=== PATIENT | male | born 1990 | race American Indian/Alaskan Native ===

== ENCOUNTER 2018-12-25 11:09 | Emergency (ER) | payer SELFPAY ==
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
--- NOTE | 2018-12-25 12:43 | XRay Report ---
LEFT ANKLE, 3 VIEWS INDICATION: ankle pain. COMPARISON: None. IMPRESSION: Moderate to severe soft tissue swelling or edema is evident. Bone mineralization is nor mal. No acute osseous findings or joint pathology is identified. Signer Name: Matt Coleman Jr, MD Signed: 12/25/2018 12:38 PM Workstation Name: [id number]
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
[2018-12-25] MEDS ORDERED: TORADOL IM ONE (13:47)
--- NOTE | 2018-12-25 15:01 | XRay Report ---
FACIAL BONES, 4 VIEWS INDICATION: right side jaw pain, r/o fx. COMPARISON: None. IMPRESSION: No acute osseous or soft tissue abnormality. The sinuses are well-aerated. Orbital ca vities are symmetric and unremarkable. Signer Name: Matt Coleman Jr, MD Signed: 12/25/2018 2:57 PM Workstation Name: [id number]
[2018-12-25 15:48] VITALS: BP 131/81
== END 2018-12-25 15:45 | disposition home or self-care (01) ==
LOC: ED 11:09
DX: S96.912A Strain of unspecified muscle and tendon at ankle and foot level, left foot, initial encounter (principal); K02.9 Dental caries, unspecified; G47.419 Narcolepsy without cataplexy; F12.10 Cannabis abuse, uncomplicated; Z79.899 Other long term (current) drug therapy; Y04.0XXA Assault by unarmed brawl or fight, initial encounter; Y93.89 Activity, other specified; Y92.89 Other specified places as the place of occurrence of the external cause; Y99.8 Other external cause status
CPT/HCPCS: 70140; 73610; 96372; 99283; J1885

== ENCOUNTER 2019-02-05 12:13 | Emergency (ER) | payer SELFPAY ==
[2019-02-05] MEDS ORDERED: BOOSTRIX IM ONE ×2 (12:18→15:16)
--- NOTE | 2019-02-05 12:19 | Emergency Department Report ---
Blank Doc - Documentation Documentation: 28-year-old male that presents with right arm lac. This initial assessment/diagnostic orders/clinical plan/treatment(s) is/are subject to change based on patient's health status, clinical progression and re- assessment by fellow clinical providers in the ED. Further treatment and workup at subsequent clinical providers discretion. Patient/guardians urged not to elope from the ED as their condition may be serious if not clinically assessed and managed. Initial orders include: 1- Patient sent to [facility] for further evaluation and treatment 2- tetanus
[2019-02-05 12:20] VITALS: BP 148/94
--- NOTE | 2019-02-05 15:53 | Emergency Department Report ---
ED Laceration HPI - HPI Chief Complaint: Wound/Laceration Stated Complaint: RT ARM CUT/PAIN Time Seen by Provider: 02/05/19 12:18 Location: Upper Extremity (right lower arm) Severity: mild Tetanus Status: Not up to Date Laceration Symptoms: Yes Pain, No Foreign Body Sensation, No Numbness, No Weakness Other History: Patient states around 9 AM last yesterday he was working on a metal piece and accidentally struck his arm. Patient states that this occurred while he was at home in his backyard. Patient is states is not up-to-date on his tetanus. He states Minimal bleeding and bleeding stopped and resolved yesterday. Patient states did not look serious so he did not go in to be evaluated when it occurred. ED Review of Systems ROS: Stated complaint: RT ARM CUT/PAIN Other details as noted in HPI Comment: All other systems reviewed and negative ED Past Medical Hx - Past Medical History Previous Medical History?: No Additional medical history: Narcolepsy - Surgical History Past Surgical History?: No - Social History Smoking Status: Current Every Day Smoker Substance Use Type: None - Medications Home Medications: Home Medications Medication Instructions Recorded Confirmed Last Taken Type Butalb/Acetamin/Caff 50-325-40 1 each PO Q4H PRN #20 tablet 09/07/14 Unknown Rx [Fioricet] Ibuprofen [Motrin 600 MG tab] 600 mg PO Q8H PRN #20 tablet 12/25/18 Unknown Rx traMADol [Ultram 50 MG tab] 50 mg PO Q6HR PRN #10 tablet 12/25/18 Unknown Rx Ibuprofen [Motrin] 800 mg PO Q8HR #30 tablet 02/05/19 Unknown Rx cephALEXin [Keflex] 500 mg PO Q12HR #14 cap 02/05/19 Unknown Rx Laceration Physical Exam - Exam General: Vital signs noted. No distress. Alert and acting appropriately. Wound Length (cm): 1 Laceration Location: Other (right forearm lateral, no bleeding, healing) Laceration Exam: Yes Normal Distal CMS, No Foreign Body, No Exposed Tendon, Vessel, or Nerve, No Tendon Injury ED Course Vital Signs 02/05/19 12:16 Temperature 98.3 F Pulse Rate 82 Respiratory 17 Rate Blood Pressure 148/94 O2 Sat by Pulse 97 Oximetry ED Medical Decision Making - Medical Decision Making 28-year-old male presents with small avulsion of the right forearm. Wound looks like it is started to heal. Also patient won't sustained over 24 hours ago. Patient received tetanus boOster in the ED. Prophylaxis antibiotics given to patient. Patient presents with a trial of antibiotics . Discussed the patient to follow up with primary care physician in 3-5 days Vital signs are normal patient is in no acute distress. Wound was cleaned and dressed with triple ointment and sterile gauze dressing Critical care attestation.: If time is entered above; I have spent that time in minutes in the direct care of this critically ill patient, excluding procedure time. ED Disposition Clinical Impression: Avulsion of skin of forearm Disposition: DC-01 TO HOME OR SELFCARE Is pt being admited?: No Does the pt Need Aspirin: No Condition: Stable Instructions: Laceration (ED), Acute Wound Care (ED) Additional Instructions: Make sure to follow up with the primary care physician as discussed. Take all your medications as you've been prescribed. If you have any worsening symptoms or develop new symptoms please return to ED immediately. Prescriptions: cephALEXin [Keflex] 500 mg PO Q12HR #14 cap Ibuprofen [Motrin] 800 mg PO Q8HR #30 tablet Referrals: PRIMARY CARE, [Primary Care Provider] - 3-5 Days [facility] [Outside] - 3-5 Days Forms: Accompanied Note, Work/School Release Form(ED) Time of Disposition: 15:52
== END 2019-02-05 16:00 | disposition home or self-care (01) ==
LOC: ED 12:13
DX: S51.811A Laceration without foreign body of right forearm, initial encounter (principal); F17.200 Nicotine dependence, unspecified, uncomplicated; Z79.899 Other long term (current) drug therapy; W26.8XXA Contact with other sharp object(s), not elsewhere classified, initial encounter; Y93.89 Activity, other specified; Y92.89 Other specified places as the place of occurrence of the external cause; Y99.8 Other external cause status
CPT/HCPCS: 90471; 90715

== ENCOUNTER 2019-02-23 06:45 | Emergency (ER) | payer SELFPAY ==
--- NOTE | 2019-02-23 08:21 | Emergency Department Report ---
<MELINA MONTENEGRO - Last Filed: 02/24/19 08:43> ED Abdominal Pain HPI - General Chief Complaint: Abdominal Pain Stated Complaint: LT FLANK PAIN Time Seen by Provider: 02/23/19 07:46 Source: patient Mode of arrival: Ambulatory Limitations: No Limitations - History of Present Illness Initial Comments: 28-year-old -[place] male patient without significant past medical history presents with complaints of left upper quadrant pain for the past 2 days. He states the pain began after lifting a 120 pound item at work. He comp lains of a bulging mass in the area. He states the pain is a 3/10 in severity and improves with naproxen. He denies any nausea/vomiting/diarrhea, hematochezia, melena, constipation, or inability to pass gas. He states he has had 2 bowel movements since the incident. He denies any fever/chills/sweats. MD Complaint: abdominal pain -: Sudden Radiation: LUQ Migration to: no migration Severity scale (0 -10): 3 Quality: aching Consistency: constant Improves With: medication Associated Symptoms: denies other symptoms Treatments Prior to Arrival: NSAIDs - Related Data Previous Rx's Medication Instructions Recorded Last Taken Type Butalb/Acetamin/Caff 50-325-40 1 each PO Q4H PRN #20 tablet 09/07/14 Unknown Rx [Fioricet] Ibuprofen [Motrin 600 MG tab] 600 mg PO Q8H PRN #20 tablet 12/25/18 Unknown Rx traMADol [Ultram 50 MG tab] 50 mg PO Q6HR PRN #10 tablet 12/25/18 Unknown Rx Ibuprofen [Motrin] 800 mg PO Q8HR #30 tablet 02/05/19 Unknown Rx cephALEXin [Keflex] 500 mg PO Q12HR #14 cap 02/05/19 Unknown Rx Allergies Allergy/AdvReac Type Severity Reaction Status Date / Time No Known Allergies Allergy Unverified 02/05/14 12:15 ED Review of Systems Comment: All other systems reviewed and negative Constitutional: denies: chills, diaphoresis, fever Gastrointestinal: abdominal pain. denies: nausea, vomiting, diarrhea, constipation, melena, hematochezia ED Past Medical Hx - Past Medical History Previous Medical History?: No Additional medical history: Narcolepsy - Surgical History Past Surgical History?: No - Social History Smoking Status: Current Every Day Smoker Substance Use Type: None - Medications Home Medications: Home Medications Medication Instructions Recorded Confirmed Last Taken Type Butalb/Acetamin/Caff 50-325-40 1 each PO Q4H PRN #20 tablet 09/07/14 Unknown Rx [Fioricet] Ibuprofen [Motrin 600 MG tab] 600 mg PO Q8H PRN #20 tablet 12/25/18 Unknown Rx traMADol [Ultram 50 MG tab] 50 mg PO Q6HR PRN #10 tablet 12/25/18 Unknown Rx Ibuprofen [Motrin] 800 mg PO Q8HR #30 tablet 02/05/19 Unknown Rx cephALEXin [Keflex] 500 mg PO Q12HR #14 cap 02/05/19 Unknown Rx ED Physical Exam - General Limitations: No Limitations General appearance: alert, in no apparent distress - Head Head exam: Present: atraumatic, normocephalic - Eye Eye exam: Present: normal appearance. Absent: scleral icterus - Respiratory Respiratory exam: Present: normal lung sounds bilaterally. Absent: respiratory distress - Cardiovascular Cardiovascular Exam: Present: regular rate, normal rhythm, normal heart sounds - GI/Abdominal GI/Abdominal exam: Present: soft, tenderness (mild in LUQ), hernia (LUQ ventral hernia noted without overlying erythema. Hernia does appear to reduce). Absent: guarding, rebound, rigid, normal bowel sounds ED Medical Decision Making - Medical Decision Making 28-year-old -[place] male patient here complains left upper abdominal pain and bulging. Symptoms began immediately after lifting a very heavy object at work that weighed about 120 pounds. Patient denies any nausea, hematochezia, melena he states the pain is a 2/10 in severity. The pain has improved with naproxen. The hernia appears to reduce on exam hernia is soft without overlying erythema. Vitals are WNL. Given hernia non-strangulated, patient okay to DC home with follow-up with GI surgery. Informed patient to call surgeon first thing tomorrow morning to set up a follow-up appointment. Also discuss very strict return precautions in great detail with the patient who verbalizes understanding. ED Disposition Clinical Impression: Abdominal hernia without obstruction or gangrene Qualifiers: Hernia type: other abdominal hernia Qualified Code(s): K45.8 - Other specified abdominal hernia without obstruction or gangrene Disposition: DC-01 TO HOME OR SELFCARE Is pt being admited?: No Condition: Stable Instructions: Ventral Hernia (ED) Additional Instructions: He is return to the emergency department if you develop new or worsening symptoms including inability to pass gas or have a bowel movement, nausea/vomiting, fever, increased pain/swelling, or skin changes. Referrals: ALISIA LUDWIG MD [Staff Physician] - 2-3 Days Forms: Work/School Release Form(ED) <CODY TREJO P - Last Filed: 02/24/19 20:28> ED Review of Systems ROS: Stated complaint: LT FLANK PAIN Other details as noted in HPI ED Course Vital Signs 02/23/19 02/23/19 06:53 08:29 Temperature 98.9 F Pulse Rate 64 70 Respiratory 20 20 Rate Blood Pressure 146/104 Blood Pressure 150/95 [Left] O2 Sat by Pulse 87 95 Oximetry ED Medical Decision Making - Medical Decision Making Attestation: Available for consultation Critical care attestation.: If time is entered above; I have spent that time in minutes in the direct care of this critically ill patient, excluding procedure time. ED Disposition Is pt being admited?: No
[2019-02-23 08:30] VITALS: BP 150/95
== END 2019-02-23 08:29 | disposition home or self-care (01) ==
LOC: ED 06:45
DX: K46.9 Unspecified abdominal hernia without obstruction or gangrene (principal); F17.200 Nicotine dependence, unspecified, uncomplicated; Z79.899 Other long term (current) drug therapy

== ENCOUNTER 2019-06-30 23:36 | Emergency (ER) | payer SELFPAY ==
[2019-06-30 23:49] VITALS: BP 190/119
[2019-07-01] MEDS ORDERED: ACETAMINOPHEN 325 MG TAB PO ONE (00:03)
[2019-07-01] MEDS ORDERED: IBUPROFEN 800 MG TAB PO ONE (01:58)
--- NOTE | 2019-07-01 03:04 | XRay Report ---
CHEST 2 VIEWS INDICATION: MAIN: FEVER, COUGH X 1 DAY. COMPARISON: None FINDINGS: Support devices: None. Heart: Within normal limits. Lungs: No acute air space or interstitial disease. Pleura: No significant pleural effusion. No pneumothorax. Additional findings: None. IMPRESSION: 1. No acute findings. Signer Name: Geoff Cantor MD Signed: 07/01/2019 2:59 AM Workstation Name: [id number]
--- NOTE | 2019-07-01 04:39 | Emergency Department Report ---
- General Chief Complaint: Upper Respiratory Infection Stated Complaint: FEVER,COUGH Source: patient Mode of arrival: Ambulatory Limitations: No Limitations - History of Present Illness Initial Comments: Patient is a 29-year-old -[place] male with no past medical history who presents to the ED with complaint of acute onset persistent nasal and sinus congestion, frontal sinus pressure and headache, sore throat, dysphagia, persistent dry cough, diffuse body aches and pains and intermittent fever of up to 101 F for the last 2 days. Patient states that no one else at home or at work is had similar symptoms. Patient also denies any travel out of the country or being in contact with someone who has traveled out of the country. Patient denies dizziness, syncope, chest pain, shortness of breath, abdominal pain, nausea, vomiting, diarrhea, dysuria, urinary frequency and urgency, change in vision or back pain or traumatic injury. MD Complaint: fever, cough, sore throat, rhinorrhea, nasal congestion -: Sudden, days(s) (2) Severity: severe Severity scale (0 -10): 7 Quality: sharp, aching Consistency: constant Improves With: nothing Worsens With: nothing Associated Symptoms: denies other symptoms, fever, chills, myalgias, headache, rhinorrhea, nasal congestion, sore throat, cough. denies: stiff neck, chest pain, shortness of breath, abdominal pain, nausea, vomiting, diarrhea, dysuria, rash, confusion, weight loss, epistaxis, ear pain Treatments Prior to Arrival: none - Related Data Previous Rx's Medication Instructions Recorded Last Taken Type Butalb/Acetamin/Caff 50-325-40 1 each PO Q4H PRN #20 tablet 09/07/14 Unknown Rx [Fioricet] Ibuprofen [Motrin 600 MG tab] 600 mg PO Q8H PRN #20 tablet 12/25/18 Unknown Rx traMADoL [Ultram 50 MG tab] 50 mg PO Q6HR PRN #10 tablet 12/25/18 Unknown Rx Ibuprofen [Motrin] 800 mg PO Q8HR #30 tablet 02/05/19 Unknown Rx cephALEXin [Keflex] 500 mg PO Q12HR #14 cap 02/05/19 Unknown Rx Azithromycin [Zithromax Z-YESIKA] 250 mg PO DAILY #6 tablet 07/01/19 Unknown Rx Benzonatate [Tessalon Perles] 100 mg PO Q8HR #30 capsule 07/01/19 Unknown Rx Cetirizine HCl [Zyrtec 10mg tab] 10 mg PO DAILY #30 tablet 07/01/19 Unknown Rx Ibuprofen [Motrin] 800 mg PO Q8HR PRN #30 tablet 07/01/19 Unknown Rx methylPREDNISolone [Medrol 4MG 4 mg PO DAILY #21 tab.ds.pk 07/01/19 Unknown Rx DOSEPAK (21 tabs)] Allergies Allergy/AdvReac Type Severity Reaction Status Date / Time No Known Allergies Allergy Unverified 02/05/14 12:15 ED Review of Systems ROS: Stated complaint: FEVER,COUGH Other details as noted in HPI Constitutional: chills, fever, malaise Eyes: denies: eye pain, eye discharge, vision change ENT: throat pain, congestion. denies: ear pain Respiratory: cough. denies: shortness of breath, wheezing Cardiovascular: denies: chest pain, palpitations Endocrine: no symptoms reported Gastrointestinal: denies: abdominal pain, nausea, diarrhea Genitourinary: denies: urgency, dysuria Musculoskeletal: back pain, arthralgia, myalgia. denies: joint swelling Skin: denies: rash, lesions Neurological: headache. denies: weakness, paresthesias Psychiatric: denies: anxiety, depression Hematological/Lymphatic: denies: easy bleeding, easy bruising ED Past Medical Hx - Past Medical History Previous Medical History?: Yes Additional medical history: Narcolepsy, Morbid Obesity, - Surgical History Past Surgical History?: Yes Additional Surgical History: Hernia repair. - Social History Smoking Status: Current Every Day Smoker Substance Use Type: None - Medications Home Medications: Home Medications Medication Instructions Recorded Confirmed Last Taken Type Butalb/Acetamin/Caff 50-325-40 1 each PO Q4H PRN #20 tablet 09/07/14 Unknown Rx [Fioricet] Ibuprofen [Motrin 600 MG tab] 600 mg PO Q8H PRN #20 tablet 12/25/18 Unknown Rx traMADoL [Ultram 50 MG tab] 50 mg PO Q6HR PRN #10 tablet 12/25/18 Unknown Rx Ibuprofen [Motrin] 800 mg PO Q8HR #30 tablet 02/05/19 Unknown Rx cephALEXin [Keflex] 500 mg PO Q12HR #14 cap 02/05/19 Unknown Rx Azithromycin [Zithromax Z-YESIKA] 250 mg PO DAILY #6 tablet 07/01/19 Unknown Rx Benzonatate [Tessalon Perles] 100 mg PO Q8HR #30 capsule 07/01/19 Unknown Rx Cetirizine HCl [Zyrtec 10mg tab] 10 mg PO DAILY #30 tablet 07/01/19 Unknown Rx Ibuprofen [Motrin] 800 mg PO Q8HR PRN #30 tablet 07/01/19 Unknown Rx methylPREDNISolone [Medrol 4MG 4 mg PO DAILY #21 tab.ds.pk 07/01/19 Unknown Rx DOSEPAK (21 tabs)] ED Physical Exam - General Limitations: No Limitations General appearance: alert, in no apparent distress - Head Head exam: Present: atraumatic, normocephalic, normal inspection - Eye Eye exam: Present: normal appearance, PERRL, EOMI Pupils: Present: normal accommodation - ENT ENT exam: Present: mucous membranes moist, TM's normal bilaterally, normal external ear exam, other (Grossly congested nasal passages; erythematous oropharynx and tonsils) - Neck Neck exam: Present: normal inspection, full ROM. Absent: tenderness, meningismus - Respiratory Respiratory exam: Present: normal lung sounds bilaterally. Absent: respiratory distress, wheezes, rales, chest wall tenderness, accessory muscle use, decreased breath sounds - Cardiovascular Cardiovascular Exam: Present: regular rate, normal rhythm, normal heart sounds. Absent: systolic murmur, diastolic murmur, rubs, gallop - GI/Abdominal GI/Abdominal exam: Present: soft, normal bowel sounds. Absent: tenderness, guarding, rebound, hyperactive bowel sounds, hypoactive bowel sounds, organomegaly - Extremities Exam Extremities exam: Present: normal inspection, full ROM, normal capillary refill - Back Exam Back exam: Present: normal inspection, full ROM. Absent: tenderness, muscle spasm - Neurological Exam Neurological exam: Present: alert, oriented X3, CN II-XII intact, normal gait, reflexes normal - Psychiatric Psychiatric exam: Present: normal affect, normal mood - Skin Skin exam: Present: warm, dry, intact, normal color. Absent: rash ED Course Vital Signs 06/30/19 07/01/19 23:46 00:00 Temperature 100.9 F H 100.9 F H Pulse Rate 82 83 Respiratory 18 18 Rate Blood Pressure 190/119 190/119 O2 Sat by Pulse 100 100 Oximetry ED Medical Decision Making - Radiology Data Radiology results: report reviewed, image reviewed Chest x-ray shows no acute cardiopulmonary abnormalities or pneumonitis. - Medical Decision Making This is a 29-year-old male who presented to the ED with acute onset persistent nasal and sinus congestion, diffuse body aches and pains, sore throat, persistent dry cough with intermittent fever of up to 101 F for the last 2 days. In the ED, patient is alert and oriented x3 and is not in distress but febrile in triage. Patient was treated for fever in the ED. Rapid influenza test is negative. Rapid strep test was also negative. Chest x-ray shows no acute cardiopulmonary abnormalities or pneumonitis. On reevaluation, patient's fever resolved as well as the pain and the cough also improved. Patient symptoms are likely due to acute upper respiratory infection versus sinusitis versus pharyngitis versus bronchitis. Patient was discharged home on medications and advised to follow-up with his primary care physician in 7 to 10 days for reevaluation or return to the ED immediately if symptoms get worse. - Differential Diagnosis Sinusitis; Bronchitis; Pneumonia; Flu; Strep pharyngitis; Flu Critical care attestation.: If time is entered above; I have spent that time in minutes in the direct care of this critically ill patient, excluding procedure time. ED Disposition Clinical Impression: Fever and chills, Acute upper respiratory infection Acute pharyngitis Qualifiers: Pharyngitis/tonsillitis etiology: other specified organisms Qualified Code(s): J02.8 - Acute pharyngitis due to other specified organisms Acute bronchitis Qualifiers: Bronchitis organism: other organism Qualified Code(s): J20.8 - Acute bronchitis due to other specified organisms Disposition: DC-01 TO HOME OR SELFCARE Is pt being admited?: No Does the pt Need Aspirin: No Condition: Stable Instructions: Acute Bronchitis (ED), Pharyngitis (ED), Upper Respiratory Infection (ED) Additional Instructions: All lab test results are unremarkable. Chest x-ray shows no acute cardiopulmonary abnormalities. Therefore take medications with food, drink plenty of fluids and follow-up with your primary care physician in 5 to 7 days for reevaluation. Return to the ED immediately if symptoms get worse. Prescriptions: methylPREDNISolone [Medrol 4MG DOSEPAK (21 tabs)] 4 mg PO DAILY #21 tab.ds.pk Ibuprofen [Motrin] 800 mg PO Q8HR PRN #30 tablet PRN Reason: Pain , Severe (7-10) Benzonatate [Tessalon Perles] 100 mg PO Q8HR #30 capsule Azithromycin [Zithromax Z-YESIKA] 250 mg PO DAILY #6 tablet Cetirizine HCl [Zyrtec 10mg tab] 10 mg PO DAILY #30 tablet Referrals: [facility] [Outside] - 3-5 Days Forms: Work/School Release Form(ED) Time of Disposition: 04:33 Print Language: SYRIAC
== END 2019-07-01 04:44 | disposition home or self-care (01) ==
LOC: ED 23:36
DX: J02.9 Acute pharyngitis, unspecified (principal); J20.9 Acute bronchitis, unspecified; E66.01 Morbid (severe) obesity due to excess calories; F17.200 Nicotine dependence, unspecified, uncomplicated; Z79.1 Long term (current) use of non-steroidal anti-inflammatories (NSAID); Z79.899 Other long term (current) drug therapy
CPT/HCPCS: 71046; 87116; 87400; 87430

== ENCOUNTER 2020-10-29 13:38 | Emergency (ER) | payer OTHER ==
[2020-10-29] MEDS ORDERED: hydrALAZINE 20 MG/1 ML INJ IV ONE (16:40)
[2020-10-29] MEDS ORDERED: MORPHINE 4 MG/1 ML INJ IV ONE (16:41)
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
[2020-10-29 17:33] LABS: Basophils # (Auto) 0.1 K/mm3 (0.0-0.1); Basophils % (Auto) 0.8 % (0.0-1.8); Eosinophils # (Auto) 0.1 K/mm3 (0.0-0.4); Eosinophils % (Auto) 1.2 % (0.0-4.3); Hematocrit 41.2 % (35.5-45.6); Hemoglobin 13.6 gm/dl (11.8-15.2); Lymphocytes # (Auto) 2.5 K/mm3 (1.2-5.4); Lymphocytes % (Auto) 22.9 % (13.4-35.0); Mean Corpuscular HGB Conc 33 % (32-34); Mean Corpuscular Volume 82 fl (84-94); Monocytes # (Auto) 0.8 K/mm3 (0.0-0.8); Monocytes % (Auto) 7.6 % (0.0-7.3); Platelet Count 235 K/mm3 (140-440); Red Cell Distribution Width 15.4 % (13.2-15.2)
[2020-10-29 18:03] LABS: Alanine Aminotransferase 18 units/L (7-56); BUN/Creatinine Ratio 10; Blood Urea Nitrogen 8 mg/dL (9-20); Calcium 8.8 mg/dL (8.4-10.2); Hemolysis Index 46
[2020-10-29 19:55] VITALS: BP 169/99
== END 2020-10-29 20:15 | disposition home or self-care (01) ==
LOC: ED 13:38
DX: S39.012A Strain of muscle, fascia and tendon of lower back, initial encounter (principal); F17.200 Nicotine dependence, unspecified, uncomplicated; Z79.899 Other long term (current) drug therapy; I10 Essential (primary) hypertension; V89.2XXA Person injured in unspecified motor-vehicle accident, traffic, initial encounter; Y93.89 Activity, other specified; Y92.488 Other paved roadways as the place of occurrence of the external cause; Y99.8 Other external cause status
CPT/HCPCS: 36415; 72100; 80053; 85025; 96374; 99284; J2270